=== PATIENT | female | born 1955 | race Hispanic/Latino ===

== ENCOUNTER 2022-03-20 13:10 | Emergency (ER) | payer MEDICARE ==
[2022-03-20 15:10] VITALS: BP 136/80
== END 2022-03-20 15:20 | disposition home or self-care (01) ==
LOC: EDH 13:10
DX: R03.0 Elevated blood-pressure reading, without diagnosis of hypertension (principal); Z71.1 Person with feared health complaint in whom no diagnosis is made; I10 Essential (primary) hypertension; K21.9 Gastro-esophageal reflux disease without esophagitis; M81.0 Age-related osteoporosis without current pathological fracture; Z86.73 Personal history of transient ischemic attack (TIA), and cerebral infarction without residual deficits; Z88.1 Allergy status to other antibiotic agents; Z88.2 Allergy status to sulfonamides

== ENCOUNTER 2025-08-14 02:34 | Observation (INO) | payer MEDICARE ==
[~2025-08-14] VITALS: Ht 157.5 cm; Wt 44.5 kg
[2025-08-14] VITALS (7 sets, daily range): BP systolic 145–166; BP diastolic 59–94; PULSE 71–80; RESP 16–18; TEMP 97.2–99.1; O2SAT 94–98
--- NOTE | 2025-08-14 02:43 | ERN ---
ED Note History of Present Illness Stated Complaint: Patient was sent in from rehab center. The patient that has bed-bound A&O times 0. They deny that having any falls or trips or traumas. But they said she does have a left ankle fracture. Chief Complaint: Ankle Problem Time Seen by MD: 02:39 Allergies: Coded Allergies: Sulfa (Sulfonamide Antibiotics) (Unverified Allergy, Unknown, UNKNOWN, 03/20/22) sulfamethoxazole (Unverified Allergy, Unknown, HIVES, 03/20/22) trimethoprim (Unverified Allergy, Unknown, HIVES, 03/20/22) Past Medical History Past Medical History: CVA Additional Past Medical Hx: PRFOUND IDD APHASIA DYSPHAGIA OSTEOPOROSIS GERD Surgical History: Unknown Social History: Other Review of System Dictation Constitutional: Negative for fever,chills, and weight loss Eyes: Negative for injury, pain,redness, and discharge ENT: Negative for injury,pain or swelling Cardiovascular: Negative for chest pain, palpitations, and edema Respiratory: Negative for shortness of breath, cough, and wheezing, Abdomen/GI: Negative for abdominal pain, nausea, vomiting, diarrhea, and constipation Back: Negative for injury and pain : Negative for injury, bleeding and discharge MS/Extremity: Negative for injury and deformity Skin: Negative for rash, and discoloration Neuro: Negative for headache, weakness, numbness, tingling, and seizure Psych: Negative for suicide ideation, homicidal ideation, and hallucinations Ankle fracture Initial Vital Sign VS Vital Signs Date Time Temp Pulse Resp B/P (MAP) Pulse Ox O2 Delivery O2 Flow Rate FiO2 08/14/25 02:36 99.0 96 16 111/74 96 Nasal Cannula 3.0 08/14/25 03:13 32 Physical Exam Dictation General: awake, alert, NAD Head/Face: Normocephalic, atraumatic Eyes: PERRL, EOMI, vision at baseline ENT: oral cavity clear, TMs clear, no signs of infection Neck: Trachea midline, supple, no nuchal rigidity Cardiovascular: RRR, normal S1/S2, No MRGs, no JVD Respiratory: CTAB, no respiratory distress, No rales or wheezes Abdomen: Soft, non-tender, non-distended, normal bowel sounds, no guarding or rebound. Skin: Warm, dry, normal turgor, no rash MS/Extremity: Pulses equal, no cyanosis, neurovascular intact, FROM Neuro: A&O times 0. But the patient does retract of her both of her arms. And both of her legs with nail stimulation. Does have some redness and bruising in the left lateral malleolus. Psych: Normal behavior, mood, and affect normal No signs of trauma bruising cuts scrapes lesions on the skull. Results (Laboratory/Radiology) Laboratory/Radiology Laboratory Tests Test 08/14/25 03:00 White Blood Count 7.6 K/uL (4.8-10.8) Red Blood Count 4.30 MIL/uL (4.00-5.50) Hemoglobin 12.9 g/dL (12.0-16.0) Hematocrit 38.5 % (36-48) Mean Corpuscular Volume 89.5 fL (79-99) Mean Corpuscular Hemoglobin 30.0 pg (27.0-33.0) Mean Corpuscular Hemoglobin Concent 33.5 g/dL (32.0-36.0) Red Cell Distribution Width 14.3 % (11.0-15.5) Platelet Count 163 K/uL (130-400) Mean Platelet Volume 10.1 fL (7.5-10.5) Immature Granulocyte % (Auto) 0.4 % (0-1) Neutrophils (%) (Auto) 62.6 % (40.0-77.0) Lymphocytes (%) (Auto) 25.8 % (21.0-51.0) Monocytes (%) (Auto) 8.0 % (3.0-13.0) Eosinophils (%) (Auto) 2.8 % (0.0-8.0) Basophils (%) (Auto) 0.4 % (0.0-5.0) Neutrophils # (Auto) 4.8 K/uL (1.8-7.7) Lymphocytes # (Auto) 2.0 K/uL (1.0-4.8) Monocytes # (Auto) 0.6 K/uL (0.1-1.0) Eosinophils # (Auto) 0.21 K/uL (0.00-0.70) Basophils # (Auto) 0.03 K/uL (0.00-0.20) Absolute Immature Granulocyte (auto 0.03 K/uL (0-1) Nucleated Red Blood Cells 0.0 % (0.0-0.19) Sodium Level 139 mmol/L (136-145) Potassium Level 3.9 mmol/L (3.5-5.1) Chloride Level 103 mmol/L (101-111) Carbon Dioxide Level 27 mmol/L (21-32) Blood Urea Nitrogen 17 mg/dL (7-18) Creatinine 0.6 mg/dL (0.5-1.0) Glomerular Filtration Rate Calc 98 mL/min (>90) Random Glucose 122 mg/dL (70-105) H Total Calcium 8.3 mg/dL (8.5-10.1) L Troponin I High Sensitivity 26 ng/L (4-50) ED Course ED Course Orders Procedure Category Date Status Time Cbc With Differential LAB 08/14/25 Complete 02:39 Chest 1vw RAD 08/14/25 Taken 02:39 12 Lead Ekg Tracing- EKG 08/14/25 Logged Technical 02:39 Troponin I High LAB 08/14/25 Complete Sensitivity 02:39 Basic Metabolic Panel LAB 08/14/25 Complete 02:39 Pelvis 1-2vws RAD 08/14/25 Taken 02:39 Ankle 2vws Lt RAD 08/14/25 Taken 02:39 Tibia/Fibula 2vws Lt RAD 08/14/25 Taken 03:16 Vital Signs Date Time Temp Pulse Resp B/P (MAP) Pulse Ox O2 Delivery O2 Flow Rate FiO2 08/14/25 03:13 98.4 75 20 122/66 97 Nasal Cannula* 3 32 08/14/25 02:36 99.0 96 16 111/74 96 Nasal Cannula 3.0 Medical Decision Making MDM MDM: Differential diagnosis: Rationale: Tests considered and ordered secondary to shared decision making i nclude: labs, ECG and radiology Previous outside records reviewed: Old ER visits. Risk of complication and/or morbidity or mortality of patient management: None Medications-Per medication reconciliation Need for hospitalization: Patient does meet criteria for hospitalization. Need for emergency major/minor surgery: No There are no social concerns with this patient. Prescription drug management Prescriptions will include symptomatic care Patient's prior external medical records from other ER visits were reviewed by me as indicated. Prior testing and results from previous visits were reviewed. Prior tests were taken into account with medical decision making and resource utilization, independent historian/historians were used to obtain complete medical history. I independently interpreted the test that were performed, results were reviewed by me and considered findings on radiology if ordered. Medical management and examination interpretation discussions were had by me with other qualified healthcare professionals as indicated for the patient's care. DX & DISP Disposition: Inpatient Departure Impression: Primary Impression: Ankle fracture Condition: Stable Referrals: JOE MCNEIL MD (PCP) FRANCIS BROWN MD Aug 14, 2025 02:43
[2025-08-14 03:07] LABS: IMMATURE GRANULOCYTE ABSOLUTE 0.03 K/uL (0-1); NUCLEATED RED BLOOD CELLS 0.0 % (0.0-0.19); PLATELET COUNT (AUTO) 163 K/uL (130-400); RED BLOOD CELL COUNT(AUTO) 4.30 MIL/uL (4.00-5.50); RED CELL DISTRIBUTION WIDTH 14.3 % (11.0-15.5); WHITE BLOOD COUNT (AUTO) 7.6 K/uL (4.8-10.8)
[2025-08-14 03:32] LABS: CREATININE 0.6 mg/dL (0.5-1.0); GLOMERULAR FILTR. RATE CALC 98.0 mL/min (>90); GLUCOSE,RANDOM 122.0 mg/dL (70-105); SODIUM SERUM 139.0 mmol/L (136-145); UREA NITROGEN, BLOOD 17.0 mg/dL (7-18)
--- NOTE | 2025-08-14 03:48 | HP ---
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 Xray was done on left ankle and left foot and patient sent here to the ED.Unknown cause as to how patient sustained fracture as patient is bedbound and no reported fall .Patient is asleep but arousable,respirations even and non labored.Latest V/S T98.4,HR75,BP 122/66,SAt 97% 3/NC.Labs : CBC is normal.Glucose 122,Total calcium 8.3 and troponin 26.CXR,Left ankle XRay,Pelvis Xray and left tibia fibula Xray were done and all results are still pending at this time.Will admit patient for further medical management. REVIEW OF SYSTEMS Unable to perform patient is aphasic,blind,and cognitively impaired. PAST MEDICAL HISTORY: [ osteoporosis ,CVA,GERD,Hypertension,contractures,bedbound ,profound intellectual disabilities ,aphasia,dysphagia and PVD ] PAST SURGICAL HISTORY: [ unknown ] PAST SOCIAL HISTORY: [ Patient is from [facility]] FAMILY HISTORY: [ unknown] Coded Allergies: Sulfa (Sulfonamide Antibiotics) (Unverified Allergy, Unknown, UNKNOWN, 03/20/22) sulfamethoxazole (Unverified Allergy, Unknown, HIVES, 03/20/22) trimethoprim (Unverified Allergy, Unknown, HIVES, 03/20/22) PHYSICAL EXAM GENERAL APPEARANCE: The patient is non verbal, in no acute cardiopulmonary distress. 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 NECK: Supple. CHEST: Normal chest expansion. No Telemetry. LUNGS: Absence of any rales, rhonchi or any wheezing. CARDIOVASCULAR: Regular. S1 and S2 normal. No appreciable rubs, murmurs or gallops. ABDOMEN: Soft, nontender, and nondistended. There is no rebound, voluntary g uarding, or rigidity. : Deferred. No Cl[place].Incontinent EXTREMITIES: Non-edematous and not cyanotic. contracted left foot swollen and with bruise SKIN: No skin breakdown. Vital Sign (Last 24 Hours) 08/14/25 03:13 Temp 98.4 Pulse 75 Resp 20 B/P (MAP) 122/66 Pulse Ox 97 O2 Delivery Nasal Cannula* O2 Flow Rate 3 FiO2 32 LABS: Laboratory: Test 08/14/25 03:00 Range/Units White Blood Count 7.6 4.8-10.8 K/uL Red Blood Count 4.30 4.00-5.50 MIL/uL Hemoglobin 12.9 12.0-16.0 g/dL Hematocrit 38.5 36-48 % Mean Corpuscular Volume 89.5 79-99 fL Mean Corpuscular Hemoglobin 30.0 27.0-33.0 pg Mean Corpuscular Hemoglobin Concent 33.5 32.0-36.0 g/dL Red Cell Distribution Width 14.3 11.0-15.5 % Platelet Count 163 130-400 K/uL Mean Platelet Volume 10.1 7.5-10.5 fL Immature Granulocyte % (Auto) 0.4 0-1 % Neutrophils (%) (Auto) 62.6 40.0-77.0 % Lymphocytes (%) (Auto) 25.8 21.0-51.0 % Monocytes (%) (Auto) 8.0 3.0-13.0 % Eosinophils (%) (Auto) 2.8 0.0-8.0 % Basophils (%) (Auto) 0.4 0.0-5.0 % Neutrophils # (Auto) 4.8 1.8-7.7 K/uL Lymphocytes # (Auto) 2.0 1.0-4.8 K/uL Monocytes # (Auto) 0.6 0.1-1.0 K/uL Eosinophils # (Auto) 0.21 0.00-0.70 K/uL Basophils # (Auto) 0.03 0.00-0.20 K/uL Absolute Immature Granulocyte (auto 0.03 0-1 K/uL Nucleated Red Blood Cells 0.0 0.0-0.19 % Sodium Level 139 136-145 mmol/L Potassium Level 3.9 3.5-5.1 mmol/L Chloride Level 103 101-111 mmol/L Carbon Dioxide Level 27 21-32 mmol/L Blood Urea Nitrogen 17 7-18 mg/dL Creatinine 0.6 0.5-1.0 mg/dL Glomerular Filtration Rate Calc 98 >90 mL/min Random Glucose 122 H 70-105 mg/dL Total Calcium 8.3 L 8.5-10.1 mg/dL Troponin I High Sensitivity 26 4-50 ng/L DIAGNOSTICS / RADIOLOGY: [ ] ASSESSMENT: Left ankle fracture POA 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 POA CVA (aphasic and dysphagia ) POA Hypertension POA Osteoporosis POA PLAN: We will admit patient in medical surgical We will keep nothing by mouth We will start LR @ 50 ml / hr while on NPO status Will starat on Famotidine 20 mg IV daily for GI prophylaxis We will replace electrolytes as needed per protocol Glucometer check Q6H and on hypoglycemia protocol We will add prn medication for fever,pain,cough , nausea and vomiting We will reconcile home meds once medlist available We will request case management service We will request bedside swallow eval Will consult dietary to assess for malnutrition and dietary recommendation We will request for PT service Fall precaution and aspiration precaution We will seek orthopedic surgeon consultation Will request neurovascular check per nursing fall Turn Q2H and as needed We will request labs in am Further orders to follow depending on above results Case discussed with attending physician and came up with above treatment and plan of care. ADVANCED CARE PLANNING 1. Which of the following were discussed? Hospice Care - No Therapeutic options - Yes Advance Directives - No Other discussions - 2. Discussed with who? Patient 3. Voluntary nature of this service was explained to the patient? Yes 4. Amount of time spent - __22 min 5. Reviewed by Physician? (if this service was performed by NPP) Yes Patient seen and examined by me. Agree with note by ADVERTISING ASSISTANT SEE ADDITIONAL ORDERS PER CHART DISCUSSED WITH NURSING STAFF BEST BRVAOP Aug 14, 2025 03:47
[2025-08-14] MEDS ORDERED: HYDROcodone/APAP 5/325 1 TAB TABLET PO PRN (04:00)
--- NOTE | 2025-08-14 04:17 | EKG ---
[facility] Test Date: 2025-08-14 Test Time: 02:51:56 Pat Name: NELL JUAREZ Department: [facility] Room: 413 Gender: F Model [employer]: 1088 : 1955 Requested By: FRANCIS BROWN Order Number: [id number] Reading MD: Kuldip Boles Measurements Intervals [place] Rate: 84 P: 65 [place]: 198 QRS: 3 QRSD: 107 T: 52 QT: 0 QTc: 0 Interpretive Statements Sinus rhythm Low voltage, precordial leads No previous ECG available for comparison Electronically Signed On 08-16-2025 12:47:45 CDT by Kuldip Boles Please click the below link to view image of tracing.
[2025-08-14] MEDS: LACTATED RINGERS 1000ML 1,000 ML IV SCH (04:29)
--- NOTE | 2025-08-14 04:37 | HMCIMG ---
EXAM: CR Left Ankle, 2 views. CLINICAL HISTORY: Pain. COMPARISON: None provided. FINDINGS: There is mild medial subluxation and inversion at the tibiotalar joint. Comminuted displaced acute fracture around the distal diaphysis and metaphysis of the fibula with mild medial tilt of the distal segment. Comminuted displaced acute fracture involving the distal metaphysis of the tibia with mild medial displacement of the distal segment. Mild osteopenia. Mild osteoarthritis. Diffuse soft tissue swelling is evident. IMPRESSION: There is mild medial subluxation and inversion at the tibiotalar joint. Comminuted displaced acute fracture around the distal diaphysis and metaphysis of the fibula with mild medial tilt of the distal segment. Comminuted displaced acute fracture involving the distal metaphysis of the tibia with mild medial displacement of the distal segment. /[place]
--- NOTE | 2025-08-14 04:40 | HMCIMG ---
EXAM: CR Left Tibia and Fibula, 2 Views. CLINICAL HISTORY: Rule out fracture. COMPARISON: None provided. FINDINGS: Comminuted displaced acute fracture around the distal diaphysis and metaphysis of the fibula with mild medial tilt of the distal segment. Comminuted displaced acute fracture involving the distal metaphysis of the tibia with mild medial displacement of the distal segment. Mild osteopenia. Mild degenerative changes around the included knee and ankle joints. Diffuse soft tissue swelling is evident. IMPRESSION: Comminuted displaced acute fracture around the distal diaphysis and metaphysis of the fibula with mild medial tilt of the distal segment. Comminuted displaced acute fracture involving the distal metaphysis of the tibia with mild medial displacement of the distal segment. /[place]
--- NOTE | 2025-08-14 04:43 | HMCIMG ---
EXAM: CR Pelvis, 1 view CLINICAL HISTORY: Pain. COMPARISON: None provided. FINDINGS: No acute fracture or aggressive appearing osseous lesion. Mild osteopenia. Mild osteoarthritis in the bilateral hip, sacroiliac, and symphysis pubis joints. Nonspecific tiny calcifications in the pelvis and left gluteal regions could be a chronic process. A component of mild constipation is present in the colon. IMPRESSION: No acute bony abnormality is evident. /[place]
--- NOTE | 2025-08-14 04:44 | HMCIMG ---
EXAM: CR Chest, 1 view CLINICAL HISTORY: Shortness of breath. COMPARISON: None provided. FINDINGS: The lungs show no infiltrates or other acute findings. No pleural effusion or pneumothorax. The cardiomediastinal silhouette is within normal limits. No acute osseous abnormality. Mild osteopenia. Degenerative osseous changes. Old healed fracture of the left clavicle shaft. 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 IMPRESSION: No acute cardiopulmonary process is evident. /[place]
[2025-08-14] MEDS ORDERED: NALO4SPR NS (04:51)
[2025-08-14] MEDS ORDERED: FAMO20TA8 PO (04:51)
[2025-08-14] MEDS ORDERED: AMLO-258 PO (04:51)
[2025-08-14] MEDS ORDERED: NA P133E22 RC (04:51)
[2025-08-14] MEDS ORDERED: DOCU240C25 PO (04:51)
[2025-08-14] MEDS ORDERED: ASPI-1005 PO (04:51)
[2025-08-14] MEDS ORDERED: ACET-3859 PO (04:51)
[2025-08-14] MEDS ORDERED: CLOP75TA32 PO (04:51)
[2025-08-14] MEDS ORDERED: BISA10SU11 PR (04:51)
[2025-08-14] MEDS ORDERED: LACT-441 PO (04:51)
[2025-08-14] MEDS ORDERED: NA PHOS M B RC PRN (05:30)
[2025-08-14] MEDS ORDERED: GLUCAGON 1MG KIT 1 MG ML IM PRN (05:30)
[2025-08-14] MEDS ORDERED: DEXTROSE 50%-WATER 50 ML DISP.SYRIN IV PRN (05:30)
[2025-08-14] MEDS ORDERED: NA PHOS DI BA RC PRN (05:30)
[2025-08-14 05:34] LABS: IMMATURE GRANULOCYTE ABSOLUTE 0.03 K/uL (0-1); NUCLEATED RED BLOOD CELLS 0.0 % (0.0-0.19); PLATELET COUNT (AUTO) 163 K/uL (130-400); RED BLOOD CELL COUNT(AUTO) 4.63 MIL/uL (4.00-5.50); RED CELL DISTRIBUTION WIDTH 14.2 % (11.0-15.5); WHITE BLOOD COUNT (AUTO) 7.8 K/uL (4.8-10.8)
[2025-08-14 05:46] LABS: INR 0.98 (0.85-1.15)
[2025-08-14] MEDS ORDERED: CYCL30DR OU (05:49)
[2025-08-14] MEDS ORDERED: GUAI100L96 PO (05:49)
[2025-08-14] MEDS ORDERED: RALO60TA13 PO (05:49)
[2025-08-14] MEDS ORDERED: PANT40TA55 PO (05:49)
[2025-08-14] MEDS ORDERED: MULT-264 PO (05:49)
[2025-08-14] MEDS ORDERED: SENN8.6T32 PO (05:49)
[2025-08-14] MEDS ORDERED: NYST15PO13 TP (05:49)
[2025-08-14] MEDS ORDERED: PEG15DRO14 OU (05:49)
[2025-08-14 05:53] LABS: ASPARTATE AMINOTRANSFERASE 131.0 U/L (10-37); CREATININE 0.6 mg/dL (0.5-1.0); GLOMERULAR FILTR. RATE CALC 98.0 mL/min (>90); GLUCOSE,RANDOM 122.0 mg/dL (70-105); SODIUM SERUM 134.0 mmol/L (136-145); TOTAL PROTEIN, SERUM 7.2 g/dL (6.0-8.3); UREA NITROGEN, BLOOD 13.0 mg/dL (7-18)
--- NOTE | 2025-08-14 07:10 | NUR ---
BESIDE SWALLOW EVALUATION: Patient presented with s/s of penetration and aspiration with ice chips and thin liquids. Patient tolerated pureed solids and moderately thick liquids w/o s/s of penetration/aspiration. RECOMMENDATIONS: Diet recommendation of pureed solids and moderately thick liquids. Compensatory strategies 1. Feed when alert 2. 1:1 feeding 3. Alternate solids/liquids 4. Pacing TYPEWRITER ASSEMBLY AND PARTS INSPECTOR reviewed results and recommendations with nurse Landon. No family at bedside. Education provided on risks of aspiration. All questions answered. Addendum: 08/14/25 at 0846 by SHERMAN MCKAY [facility] Amended: Links added.
[2025-08-14] MEDS: amLODIPine 5 MG TAB PO SCH (09:00)
[2025-08-14] MEDS: ASPIRIN 81MG CHEW TAB PO SCH (09:00)
[2025-08-14] MEDS: FAMOTIDINE 20MG VIAL IV SCH (09:00)
[2025-08-14] MEDS: LACTULOSE 20 GM/30 ML UDCUP PO SCH (09:00)
[2025-08-14] MEDS ORDERED: PoTASSium chloRIDE 20MEQ ER 20 MEQ ERTAB PO PRN (10:00)
[2025-08-14] MEDS ORDERED: MAGNESIUM 2GM PREMIX 50ML 50 ML IV PRN (10:00)
--- NOTE | 2025-08-14 11:03 | NUR ---
MORNING MEDS PT WAS NOT AWAKE. ATTEMPTED TO GIVE MEDICATIONS TO THE PATIENT. PATIENT WOULD NOT COOPERATE. WILL CONTINUE TO MONITOR.
--- NOTE | 2025-08-14 14:07 | NUR ---
DCP: INITIAL ASSESSMENT Patient is a resident of [facility] since 2021. Patient's sister, Zoraida Travis, is decision-maker for patient. JERE signed by brother, Latisha Wilson, who was in the room with permission from patient's sister, Zoraida. JERE in chart. PCP is Dr. Kavon Stinson. DCP is back to [facility]. Addendum: 08/14/25 at 1412 by JIMMIE NGUYEN SS Amended: Links added.
[2025-08-14] MEDS: PoTASSium chl 10% ELIXIR 20MEQ 20 MEQ/15 ML UDCUP PO PRN (17:17)
[2025-08-15 00:25] VITALS: BP 125/75; PULSE 62; RESP 18; TEMP 98.3
[2025-08-15 04:17] VITALS: BP 108/64; PULSE 59; RESP 17; TEMP 98
[2025-08-15 04:20] LABS: IMMATURE GRANULOCYTE ABSOLUTE 0.01 K/uL (0-1); NUCLEATED RED BLOOD CELLS 0.0 % (0.0-0.19); PLATELET COUNT (AUTO) 132 K/uL (130-400); RED BLOOD CELL COUNT(AUTO) 3.74 MIL/uL (4.00-5.50); RED CELL DISTRIBUTION WIDTH 14.1 % (11.0-15.5); WHITE BLOOD COUNT (AUTO) 5.0 K/uL (4.8-10.8)
[2025-08-15 04:38] LABS: ASPARTATE AMINOTRANSFERASE 91.0 U/L (10-37); CREATININE 0.4 mg/dL (0.5-1.0); GLOMERULAR FILTR. RATE CALC 108.0 mL/min (>90); GLUCOSE,RANDOM 105.0 mg/dL (70-105); SODIUM SERUM 142.0 mmol/L (136-145); TOTAL PROTEIN, SERUM 5.9 g/dL (6.0-8.3); UREA NITROGEN, BLOOD 13.0 mg/dL (7-18)
[2025-08-15 08:00] VITALS: BP 145/82; PULSE 98; RESP 16; TEMP 98.1
--- NOTE | 2025-08-15 10:16 | DS ---
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 Xray was done on left ankle and left foot and patient sent here to the ED.Unknown cause as to how patient sustained fracture as patient is bedbound and no reported fall 08/15/25 PATIENT WAS SEEN BY ORTHOPEDIC DR. SHELDON NO SURGICAL INTERVENTION ON THIS ADMISSION DR. SHELDON APPLY ANKLE SPLINT AND TO FOLLOW-UP IN HIS CLINIC THREE WEEKS. PATIENT'S BED-BOUND WITH CONTRACTURES blind,and cognitively impaired. RESIDING BACK TO [facility]. Geotechnical Field Technician(s): GENERAL APPEARANCE: The patient is non verbal, in no acute cardiopulmonary distress. 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 NECK: Supple. CHEST: Normal chest expansion. No Telemetry. LUNGS: Absence of any rales, rhonchi or any wheezing. CARDIOVASCULAR: Regular. S1 and S2 normal. No appreciable rubs, murmurs or gallops. ABDOMEN: Soft, nontender, and nondistended. There is no rebound, voluntary guarding, or rigidity. : Deferred. No Cl[place].Incontinent EXTREMITIES: Non-edematous and not cyanotic. contracted left foot swollen and with bruise SKIN: No skin breakdown. Assessment/Plan: discharged dx's; Left ankle fracture POA NO SURGICAL INTERVENTION: ANKLE SPLINT: FOLLOW UP WITH DR SHELDON 3 WKS. 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 POA CVA (aphasic and dysphagia ) POA Hypertension POA Osteoporosis POA SEVERE PROTEIN CALORIC MALNUTRITION PLAN: ADMISSION DATE: 08/14/25 DISCHARGE DATE: 08/15/25 DISPOSITION: RETURNED BACK [facility] CONDITION: STABLE CORPORATE SECURITIES RESEARCH ANALYST(S): ORTHOPEDIC FOLLOW UP APPOINTMENT(S): Dr Sheldon 3 wks PCP: Dr Milad Kavon MD: 2-3 days PROCEDURES: no surgical intervention IMAGING (S) REPORT ATTACHED TO SUMMARY : multiple xray: tibia fibula, pelvis, chest, and ankle MICROBIOLOGY: REPORT ATTACHED TO SUMMARY; none ACTIVITY: bedbound, decubitus precaution HOME MEDICATIONS: reviewed remain the same CHANGES ON HOME MEDICATIONS none NEW MEDICATIONS none Discharge Instructions: REASON: x ORDERING PHYSICIAN: FRANCIS BROWN MD PROCEDURE: [id number] - CHEST 1VW EXAM: CR Chest, 1 view CLINICAL HISTORY: Shortness of breath. COMPARISON: None provided. FINDINGS: The lungs show no infiltrates or other acute findings. No pleural effusion or pneumothorax. The cardiomediastinal silhouette is within normal limits. No acute osseous abnormality. Mild osteopenia. Degenerative osseous changes. Old healed fracture of the left clavicle shaft. 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 IMPRESSION: No acute cardiopulmonary process is evident. REASON: x ORDERING PHYSICIAN: FRANCIS BROWN MD PROCEDURE: [id number] - ANKLE 2VWS LT EXAM: CR Left Ankle, 2 views. CLINICAL HISTORY: Pain. COMPARISON: None provided. FINDINGS: There is mild medial subluxation and inversion at the tibiotalar joint. Comminuted displaced acute fracture around the distal diaphysis and metaphysis of the fibula with mild medial tilt of the distal segment. Comminuted displaced acute fracture involving the distal metaphysis of the tibia with mild medial displacement of the distal segment. Mild osteopenia. Mild osteoarthritis. Diffuse soft tissue swelling is evident. IMPRESSION: There is mild medial subluxation and inversion at the tibiotalar joint. Comminuted displaced acute fracture around the distal diaphysis and metaphysis of the fibula with mild medial tilt of the distal segment. Comminuted displaced acute fracture involving the distal metaphysis of the tibia with mild medial displacement of the distal segment. REASON: x ORDERING PHYSICIAN: FRANCIS BROWN MD PROCEDURE: PELVIS - PELVIS 1-2VWS EXAM: CR Pelvis, 1 view CLINICAL HISTORY: Pain. COMPARISON: None provided. FINDINGS: No acute fracture or aggressive appearing osseous lesion. Mild osteopenia. Mild osteoarthritis in the bilateral hip, sacroiliac, and symphysis pubis joints. Nonspecific tiny calcifications in the pelvis and left gluteal regions could be a chronic process. A component of mild constipation is present in the colon. IMPRESSION: No acute bony abnormality is evident. REASON: R/O FRACTURE ORDERING PHYSICIAN: FRANCIS BROWN MD PROCEDURE: TIBFIB LT - TIBIA/FIBULA 2VWS LT EXAM: CR Left Tibia and Fibula, 2 Views. CLINICAL HISTORY: Rule out fracture. COMPARISON: None provided. FINDINGS: Comminuted displaced acute fracture around the distal diaphysis and metaphysis of the fibula with mild medial tilt of the distal segment. Comminuted displaced acute fracture involving the distal metaphysis of the tibia with mild medial displacement of the distal segment. Mild osteopenia. Mild degenerative changes around the included knee and ankle joints. Diffuse soft tissue swelling is evident. IMPRESSION: Comminuted displaced acute fracture around the distal diaphysis and metaphysis of the fibula with mild medial tilt of the distal segment. Comminuted displaced acute fracture involving the distal metaphysis of the tibia with mild medial displacement of the distal segment. Item Value Date Time Sodium Level 142 mmol/L 08/15/25 0402 Sodium Level 134 mmol/L L 08/14/25 0528 Potassium Level 4.1 mmol/L 08/15/25 0402 Chloride Level 110 mmol/L 08/15/25 0402 Carbon Dioxide Level 28 mmol/L 08/15/25 0402 Blood Urea Nitrogen 13 mg/dL 08/15/25 0402 Creatinine 0.4 mg/dL L 08/15/25 0402 Glomerular Filtration Rate Calc 108 mL/min 08/15/25 0402 Random Glucose 105 mg/dL 08/15/25 0402 Total Calcium 8.2 mg/dL L 08/15/25 0402 Magnesium Level 2.10 mg/dL 08/15/25 0402 Total Bilirubin 0.6 mg/dL # 08/15/25 0402 Aspartate Amino Transf (AST/SGOT) 91 U/L H 08/15/25 0402 Alanine Aminotransferase (ALT/SGPT) 160 U/L H 08/15/25 0402 Alkaline Phosphatase 151 U/L H 08/15/25 0402 Alkaline Phosphatase 177 U/L H 08/14/25 0528 Alanine Aminotransferase (ALT/SGPT) 197 U/L H 08/14/25 0528 Aspartate Amino Transf (AST/SGOT) 131 U/L H 08/14/25 0528 Total Bilirubin 1.4 mg/dL H 08/14/25 0528 Albumin 2.8 g/dL L 08/14/25 0528 Albumin 2.2 g/dL L # 08/15/25 0402 Total Protein 7.2 g/dL 08/14/25 0528 Total Protein 5.9 g/dL L 08/15/25 040 White Blood Count 5.0 K/uL # 08/15/25 040 Red Blood Count 3.74 MIL/uL L 08/15/25 0402 Hemoglobin 11.3 g/dL L 08/15/25 040 Hematocrit 34.4 % L 08/15/25 040 Hemoglobin 12.9 g/dL 08/14/25 0300 Mean Corpuscular Volume 92.0 fL 08/15/25401 Mean Corpuscular Hemoglobin 30.2 pg 08/15/25 040 Mean Corpuscular Hemoglobin Concent 32.8 g/dL 08/15/25401 Red Cell Distribution Width 14.1 % 08/15/25401 Platelet Count 132 K/uL 08/15/25 040 Mean Platelet Volume 9.8 fL 08/15/25 040 Immature Granulocyte % (Auto) 0.2 % 08/15/25401 Neutrophils (%) (Auto) 46.7 % 08/15/25401 Lymphocytes (%) (Auto) 39.1 % 08/15/25 040 Monocytes (%) (Auto) 8.8 % 08/15/25 040 Eosinophils (%) (Auto) 4.8 % 08/15/25401 Basophils (%) (Auto) 0.4 % 08/15/25401 Neutrophils # (Auto) 2.3 K/uL 08/15/25 0402 Lymphocytes # (Auto) 2.0 K/uL 08/15/25 0402 Monocytes # (Auto) 0.4 K/uL 08/15/25 040 Eosinophils # (Auto) 0.24 K/uL 08/15/25 040 Basophils # (Auto) 0.02 K/uL 08/15/25 040 Absolute Immature Granulocyte (auto 0.01 K/uL 08/15/25401 Nucleated Red Blood Cells 0.0 % 08/15/25401 Home Medications: Reported Medications Sennosides (Senna) 8.6 Mg Tablet, 2 TAB PO DAILY for constipation for 25 Days, #100 TAB 0 Refills 08/14/25 Cyclosporine (Restasis) 0.05 % Droperette, 1 DROP OU BID for 30 Days, #60 EACH 0 Refills 08/14/25 Raloxifene HCl (Raloxifene HCl) 60 Mg Tablet, 1 TAB PO DAILY for 30 Days, #30 TAB 0 Refills 08/14/25 Pantoprazole Sodium (Protonix) 40 Mg Ectab, 1 TAB PO DAILY for 30 Days, #30 TAB 0 Refills 08/14/25 Guaifenesin (Robitussin Syrp) 100 Mg/5 Ml Syrp, 20 ML PO Q4HPRN PRN for cough for 3 Days, #120 ML 0 Refills 08/14/25 Multivitamin (Multiple Vitamins) 1 Each Tablet, 1 TAB PO DAILY for 30 Days, #30 TAB 0 Refills 08/14/25 Nystatin (Nystatin) 100,000 Unit/Gram Powder, 1 APPL TP BID for 7 Days, #60 GM 0 Refills apply to affected area(s) 08/14/25 Peg 400/Hypromellose/Glycerin (Artificial Tears Drops) 1 %-0.2 %-0.2 % Drops, 1 DROP OU BID for 30 Days, ML 0 Refills 08/14/25 Naloxone HCl (Narcan) 4 Mg/Actuation [place], 4 MG NS AD, SPRAY 08/14/25 Acetaminophen (Acetaminophen) 325 Mg Tablet, 650 MG PO AD, TAB 08/14/25 Famotidine (Famotidine) 20 Mg Tablet, 1 TAB PO BID for 30 Days, #60 TAB 0 Refills 08/14/25 Na Phos,M-B/Na Phos,Di-Ba (Fleet Enema) 19 Gram-7 Gram/118 Ml Enema, 133 ML RC AD PRN for CONSTIPATION, ENEMA 08/14/25 Bisacodyl (Bisacodyl) 10 Mg Supp.rect, 1 SUPP [place] DAILY for constipation for 4 Days, #4 SUPP 0 Refills 08/14/25 Clopidogrel Bisulfate (Clopidogrel) 75 Mg Tablet, 1 TAB PO DAILY for 30 Days, #30 TAB 0 Refills 08/14/25 Aspirin (ASPIRIN 81MG CHEW TAB) 81 Mg Tab.chew, 1 TAB PO DAILY for 30 Days, #30 TAB 0 Refills 08/14/25 Amlodipine Besylate (Amlodipine Besylate) 10 Mg Tablet, 1 TAB PO DAILY for 30 Days, #30 TAB 0 Refills 08/14/25 Docusate Calcium (Docusate Calcium) 240 Mg Capsule, 100 MG PO BID, CAP 08/14/25 Lactulose (Lactulose) 10 Gram/15 Ml Solution, 30 ML PO BID for constipation, #500 ML 0 Refills 08/14/25 Continued Medications: Acetaminophen (Acetaminophen) 325 Mg Tablet 650 MG PO AD, TAB Amlodipine Besylate (Amlodipine Besylate) 10 Mg Tablet 1 TAB PO DAILY for 30 Days, #30 TAB 0 Refills Aspirin (Aspirin 81MG Chew Tab) 81 Mg Tab.chew 1 TAB PO DAILY for 30 Days, #30 TAB 0 Refills Bisacodyl (Bisacodyl) 10 Mg Supp.rect 1 SUPP [place] DAILY for constipation for 4 Days, #4 SUPP 0 Refills Clopidogrel Bisulfate (Clopidogrel) 75 Mg Tablet 1 TAB PO DAILY for 30 Days, #30 TAB 0 Refills Cyclosporine (Restasis) 0.05 % Droperette 1 DROP OU BID for 30 Days, #60 EACH 0 Refills Docusate Calcium (Docusate Calcium) 240 Mg Capsule 100 MG PO BID, CAP Famotidine (Famotidine) 20 Mg Tablet 1 TAB PO BID for 30 Days, #60 TAB 0 Refills Guaifenesin (Robitussin Syrp) 100 Mg/5 Ml Syrp 20 ML PO Q4HPRN PRN for cough for 3 Days, #120 ML 0 Refills Lactulose (Lactulose) 10 Gram/15 Ml Solution 30 ML PO BID for constipation, #500 ML 0 Refills Multivitamin (Multiple Vitamins) 1 Each Tablet 1 TAB PO DAILY for 30 Days, #30 TAB 0 Refills Na Phos,M-B/Na Phos,Di-Ba (Fleet Enema) 19 Gram-7 Gram/118 Ml Enema 133 ML RC AD PRN for CONSTIPATION, ENEMA Naloxone HCl (Narcan) 4 Mg/Actuation [place] 4 MG NS AD, SPRAY Nystatin (Nystatin) 100,000 Unit/Gram Powder 1 APPL TP BID for 7 Days, #60 GM 0 Refills apply to affected area(s) Pantoprazole Sodium (Protonix) 40 Mg Ectab 1 TAB PO DAILY for 30 Days, #30 TAB 0 Refills Peg 400/Hypromellose/Glycerin (Artificial Tears Drops) 1 %-0.2 %-0.2 % Drops 1 DROP OU BID for 30 Days, ML 0 Refills Raloxifene HCl (Raloxifene HCl) 60 Mg Tablet 1 TAB PO DAILY for 30 Days, #30 TAB 0 Refills Sennosides (Senna) 8.6 Mg Tablet 2 TAB PO DAILY for constipation for 25 Days, #100 TAB 0 Refills Time spent arranging discharge: 31-60 minutes ATTESTATION BY PHYSICIAN I have seen and examined the patient. I reviewed the documentation, medical decision making, and treatment plan as noted by the mid-level provider above. I agree with the findings and plan of care. MAHAD YOUNG MD, ELIZABETH NP Aug 15, 2025 10:16
[2025-08-15 10:48] VITALS: O2SAT 98
[2025-08-15 12:00] VITALS: BP 124/70; PULSE 64; RESP 16; TEMP 98.3
--- NOTE | 2025-08-15 12:57 | NUR ---
DC PLAN BISI SPOKE TO ISHA MARS PARKING CASHIER SAID SURGEON SAID NO SURGERY OKAY TO RETURN TO FACILITY. BISI CALLED FACILITY AND REP. SAID PATIENT LONG-TERM RESIDENT OKAY TO RETURN JUST NEED NURSE TO CALL REPORT. BISI CALLED SISTER TO LET HER KNOW PLAN AND OKAY TO RETURN TO [facility] SAID YES SURGEON SPOKE TO HER AND LET HER KNOW PLAN OF CARE. AND OKAY FOR HER TO RETURN TO [facility]. Addendum: 08/15/25 at 1302 by SAMMY BROWN RN CM Amended: Links added.
--- NOTE | 2025-08-15 15:07 | NUR ---
JEAN MARS NP SAID OKAY FOR PATIENT TO RETURN TO [facility]. CONTINUE PREVIOUS HOME MEDICATIONS. NO NEW MEDICATIONS. SAID NO PAIN MEDICATIONS FAMILY DOES NOT WANT NARCOTICS FOR PATIENT. Addendum: 08/15/25 at 1510 by SAMMY BROWN RN CM Amended: Links added.
[2025-08-15 16:18] VITALS: BP 112/68; PULSE 77; RESP 16; TEMP 98.9
--- NOTE | 2025-08-15 17:26 | NUR ---
GAVE REPORT TO OTF WOOD IN [facility].
--- NOTE | 2025-08-15 17:29 | NUR ---
NOTIFIED EMS OF TRANSPORTATION SERVICES NEEDED FOR PT TO BE TRANSPORTED TO [facility]. IV WAS REMOVED FROM PT WITHOUT COMPLICATIONS. SPOKE TO SISTER CARLEE ON THE PHONE 2 NURSES VERIFICATION ON DISHARGE PAPERWORK.
--- NOTE | 2025-08-15 18:30 | NUR ---
EMS TRANSPORTED PT TO [facility]. NO S/S OF DISTRESS.
--- NOTE | 2025-08-16 04:21 | CONS ---
ORTHOPEDIC CONSULTATION NOTE HISTORY OF PRESENT ILLNESS: The patient resides at a [facility] and is nonverbal. I spoke to her sister on the phone and she also is not clear as to what happened to her at the [facility] and she is currently having them do an investigation. However, she was brought to the emergency room last night when she was diagnosed as having a pilon fracture of the left lower leg. The patient has been admitted. I was called for consultation. PAST MEDICAL HISTORY: As per the chart, the patient has a history of osteoporosis, cerebrovascular accident, GERD, hypertension, contractures, bedbound, profound intellectual disabilities, aphasia, dysphagia, and PVD. PAST SURGICAL HISTORY: Unknown past surgical history. PHYSICAL EXAMINATION: EXTREMITIES: The patient's left foot is warm to the touch and has a palpable dorsal pedal pulse. There is some mild swelling around her left ankle. VITAL SIGNS: Her temperature today is 97.5 with a pulse of 78, respirations of 18, blood pressure 159/91. Her white count this morning was 7.8 with a hemoglobin of 13.9, sodium 134, potassium 3.8, chloride of 102, and a blood sugar of 122. ASSESSMENT: X-rays of her left ankle, AP and lateral views, show a mildly displaced fracture of the distal fibular diaphysis with mild displacement and valgus orientation. The patient's tibia is minimally displaced pilon fracture approximately 1 cm above the plafond. It does have some slight medial displacement and impaction. There is also marked osteoporotic appearance of all the bones in her foot and ankle and lower leg. ASSESSMENT: Mildly displaced pilon fracture on the left. PLAN: As the patient is a nonambulator and with contractures and nonverbal, we are going to treat this closed. We are going to place her in a well-padded short-leg posterior splint. We will then ask them to bring it to our office in 3 weeks. We will take x-rays and apply a fresh splint at that time. TID: [id number] RECEIPT: [id number]
== END 2025-08-15 18:30 ==
LOC: EDH 02:34 → UNDOADMOB 03:52 → INTOOBSV 03:52 → EDHIP 03:52 → 4CH 04:58 → EDHIP 04:58 → 4CH 08-15 08:30 → EDHIP 08-15 08:30
PROVIDERS: ADMIT Internal Medicine; ATTEND Internal Medicine
DX: S82.872A Displaced pilon fracture of left tibia, initial encounter for closed fracture (principal); S82.402A Unspecified fracture of shaft of left fibula, initial encounter for closed fracture; S82.892A Other fracture of left lower leg, initial encounter for closed fracture; I10 Essential (primary) hypertension; I73.9 Peripheral vascular disease, unspecified; Q33.3 Agenesis of lung; F73 Profound intellectual disabilities; Z86.73 Personal history of transient ischemic attack (TIA), and cerebral infarction without residual deficits; Z74.01 Bed confinement status; Z79.899 Other long term (current) drug therapy; Z98.890 Other specified postprocedural states; X58.XXXA Exposure to other specified factors, initial encounter; Y93.89 Activity, other specified; Y92.89 Other specified places as the place of occurrence of the external cause; Y99.8 Other external cause status
CPT/HCPCS: 96361 ×4; 96365; 99285; 83735 ×2; 84484; 80053 ×2; 85025 ×3; 85610; 85730; 82948 ×5; 36415 ×2; 73600; 71045; 72170; 73590; 97161; 97530; 92610; 93005; 96375; G0378 ×10; J7120; J1308 ×2; 80048; 96374